=== PATIENT | female | born 1990 | race Caucasian/White ===

== ENCOUNTER 2017-05-27 18:24 | Emergency (ER) | payer OTHER ==
[~2017-05-27] VITALS: Ht 162.6 cm; Wt 72.5 kg
[2017-05-27 19:06] VITALS: Ht 162.6 cm; Wt 72.5 kg
[2017-05-27] MEDS ORDERED: HYD25 PO (19:31)
--- NOTE | 2017-05-27 19:35 | ERD ---
ER Documentation Chief Complaint Date/Time DATE: 05/27/17 TIME: 19:32 Chief Complaint wants medication for HTN, PMD appt in 1 month HPI This 27-year-old female presents to the emergency department today with her mother complaining of high blood pressure. Patient states she has high blood pressure for approximately 5 years but has never taken any medication for it. States that she saw a provider [facility] who was concerned about her because of her elevated blood pressure. States that she does have an appointment with a primary care doctor at [facility] next week however she is unsure if she is going to be able to go to her appointment because she has recently started a new job and starts next week. Denies any headache, dizziness, blurred vision. ROS All systems reviewed and are negative except as per history of present illness. Medications Home Meds Active Scripts Hydrochlorothiazide* (Hydrochlorothiazide*) 25 Mg Tab, 25 MG PO DAILY, #30 TAB Prov:BECKY BELL PA-C 05/27/17 Allergies Allergies: Coded Allergies: No Known Allergy (Unverified , 05/27/17) Physical Exam Vitals Vital Signs Date Time Temp Pulse Resp B/P Pulse Ox O2 Delivery O2 Flow Rate FiO2 05/27/17 19:06 98.4 83 18 160/114 100 Physical Exam Const: No acute distress Head: Atraumatic Eyes: Normal Conjunctiva. PERRLA. EOM intact. ENT: Normal External Ears, Nose and Mouth. Neck: Full range of motion..~ No meningismus. Resp: Clear to auscultation bilaterally Cardio: Regular rate and rhythm, no murmurs Abd: Soft, non tender, non distended. Normal bowel sounds Skin: No petechiae or rashes Back: No midline or flank tenderness Ext: No cyanosis, or edema Neur: Awake and alert. Cranial nerves II through XII intact. No gait ataxia peer Psych: Normal Mood and Affect Procedures/MDM This is a 27-year-old female who presents the emergency department today for concerns of elevated blood pressure. At intake patient's blood pressure was 160 /114. Patient is afebrile and otherwise well-appearing. She denies any headache, dizziness, blurred vision. Cranial nerves II through XII intact and she has no gait ataxia. Do not feel the patient requires a head CT scan at this time. Low suspicion for acute hemorrhage, mass, abscess. Low suspicion for hypertensive emergency. Patient symptoms at this time is consistent with hypertension. I discussed the patient with Dr. Matos and he has recommended that the patient be given a prescription for hydrochlorothiazide. Patient was instructed to keep her appointment next week at [facility]. I did explain to the patient that we would not continue refilling her blood pressure medications. Patient understood. At this time the patient is stable for discharge and outpatient management. Patient should follow up with their PCP in the next 1-2 days. They may return to the emergency department sooner for any persistent or worsening of symptoms. Patient understood and agreed with the plan. Departure Diagnosis: Primary Impression: Hypertension Hypertension type: essential hypertension Qualified Code: I10 - Essential hypertension Condition: Fair Patient Instructions: High Blood Pressure (Hypertension) Referrals: your PCP Additional Instructions: Call your primary care doctor TOMORROW for an appointment during the next 1-2 days.See the doctor sooner or return here if your condition worsens before your appointment time. Keep your appointment with your primary care doctor Take medications as prescribed BECKY BELL PA-C May 27, 2017 19:35
[2017-05-27 19:44] VITALS: BP 158/100; PULSE 85; RESP 18
== END 2017-05-27 19:43 | disposition home or self-care (01) ==
LOC: FTE 18:24
DX: I10 Essential (primary) hypertension (principal)
CPT/HCPCS: 99283

== ENCOUNTER 2017-06-29 16:58 | Emergency (ER) | payer OTHER ==
[~2017-06-29] VITALS: Ht 152.4 cm; Wt 74.5 kg
[~2017-06-29 16:58] MED LIST: HYDR25TA6 PO
[2017-06-29 17:02] VITALS: Ht 152.4 cm; Wt 74.5 kg
--- NOTE | 2017-06-29 18:13 | ERD ---
ER Documentation Chief Complaint Date/Time DATE: 06/29/17 TIME: 18:11 Chief Complaint cough, congestion & fever x2 days HPI 27-year-old female presents to emergency department with flulike symptoms. 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 ROS All systems reviewed and are negative except as per history of present illness. Medications Home Meds Active Scripts Hydrochlorothiazide* (Hydrochlorothiazide*) 25 Mg Tab, 25 MG PO DAILY, #30 TAB Prov:BECKY BELL PA-C 05/27/17 Allergies Allergies: Coded Allergies: No Known Allergy (Unverified , 05/27/17) PMhx/Soc History of Surgery: No Anesthesia Reaction: No Hx Neurological Disorder: No Hx Respiratory Disorders: No Hx Cardiac Disorders: Yes (HTN not on meds) Hx Psychiatric Problems: No Hx Miscellaneous Medical Probl: Yes (Gallbladder stone) Hx Alcohol Use: Yes Hx Substance Use: Yes Hx Tobacco Use: Yes Physical Exam Vitals Vital Signs Date Time Temp Pulse Resp B/P Pulse Ox O2 Delivery O2 Flow Rate FiO2 06/29/17 17:02 98.7 90 22 141/83 100 Vitals stable triage notes reviewed Physical Exam Const: Well-nourished well-appearing well-hydrated no acute distress Head: Atraumatic Eyes: Normal Conjunctiva ENT: Normal External Ears, Nose and Mouth. Neck: Full range of motion..~ No meningismus. Resp: Clear to auscultation bilaterally Cardio: Regular rate and rhythm, no murmurs Abd: Soft, non tender, non distended. Normal bowel sounds Skin: No petechiae or rashes Back: No midline or flank tenderness Ext: No cyanosis, or edema Neur: Awake and alert Psych: Normal Mood and Affect Procedures/MDM This 27-year-old female presents to emergency department today with flulike symptoms, cough congestion runny nose fever and chills. Reports symptoms are worse at night. Coughing is keeping her awake. She denies any history of asthma or recent antibiotic use. Physical exam findings support a viral infection. Treatment plan includes discharge home with Tessalon Perles, and Flonase nasal spray. Fluids, increase rest, okay to use Tylenol or Motrin for fever reduction. If symptoms fail to improve in the next 7-10 days follow-up with primary care physician. Patient is stable with no new complaints during ER course, clinically there is no current evidence to suggest pneumonia, influenza a, influenza B, bronchitis, strep pharyngitis or any other emergent condition appearing to require further evaluation or hospitalization. I feel the patient is stable for discharge at this time. I have discussed results, examination findings, the treatment plan with the patient and family present prior to discharge. Indications for emergent reevaluation, side effects of medication were also discussed. All questions were answered. Patient verbalizes understanding and agrees with plan of care. Departure Diagnosis: Primary Impression: URI (upper respiratory infection) URI type: unspecified URI Qualified Code: J06.9 - Upper respiratory tract infection, unspecified type Condition: Good Patient Instructions: Adult Self-Care for Colds, Preventing Common Respiratory Infections Referrals: [facility]ICS Additional Instructions: Thank you for for coming to [facility] for your care today. Please ask your nurse or provider if you have questions about your care today and do not leave until all your questions have been answered. Please use any medications given as directed and follow-up with your doctor (or the doctor you were referred to) in the next 2-3 days. If you do not have a primary care doctor you may follow up at the [facility] (listed below). You may also use motrin and tylenol as needed for fever and/or pain unless instructed otherwise by your provider or nurse. Indications for more urgent follow-up have been discussed, but you may return to the Emergency Department at ANY time for any worrisome or worsening symptoms. If you have abdominal pain, please know that no test or exam you received is perfect and you should follow up within 8 hours for continued pain. If you had any imaging studies today, such as an X-Ray or CT Scan, these studies will be reviewed later by a radiologist. You will be called if there are important findings that were not identified today, so make sure the contact information you provided at registration is correct. If you received any narcotic pain control medicine today, such as Vicodin, Morphine or Dilaudid, your coordination and judgment may be affected for a number of hours. Please do not drive or operate heavy machinery, and you may want someone to assist you at home. If you were given a prescription for narcotic medication, be aware that it is very addictive- use sparingly and only if necessary. BETO KASPER Jun 29, 2017 18:13
[2017-06-29] MEDS ORDERED: BENZ100C70 PO (18:47)
[2017-06-29] MEDS ORDERED: FLUT9.9S NASAL (18:47)
== END 2017-06-29 19:40 | disposition home or self-care (01) ==
LOC: FTE 16:58
DX: J06.9 Acute upper respiratory infection, unspecified (principal); I10 Essential (primary) hypertension; Z87.891 Personal history of nicotine dependence
CPT/HCPCS: 99283

== ENCOUNTER 2017-11-15 03:21 | Emergency (ER) | END 2017-11-15 05:43 | disposition home or self-care (01) ==

== ENCOUNTER 2018-04-05 21:07 | Emergency (ER) | END 2018-04-05 23:23 | disposition home or self-care (01) ==

== ENCOUNTER 2018-09-07 22:32 | Emergency (ER) | END 2018-09-08 01:14 | disposition home or self-care (01) ==

== ENCOUNTER 2019-01-28 06:44 | Emergency (ER) | payer OTHER ==
[~2019-01-28] VITALS: Ht 160 cm; Wt 76.7 kg
[~2019-01-28 06:44] MED LIST changes: +AMOX1TAB10 PO; +AZIT250T PO; +BENZ-6 PO; +HYDR-3980 PO; +IBUP-1542 PO; +ONDA4TAB14 PO; +PROM6.2515 PO
[2019-01-28 06:48] VITALS: BP 162/98; PULSE 61; RESP 18; Ht 160 cm; Wt 76.7 kg
[2019-01-28] MEDS ORDERED: SOD CHLORIDE 0.9% 1,000 ML IV STA (07:01)
[2019-01-28] MEDS ORDERED: ONDANSETRON 4 MG INJ IV STA (07:01)
[2019-01-28] MEDS ORDERED: KETOROLAC 30 MG INJ IV STA (07:01)
[2019-01-28] MEDS ORDERED: HYDROCODONE/APAP (5/325) TAB PO ONE (08:30)
[2019-01-28] MEDS ORDERED: FAMO-96 PO (08:30)
[2019-01-28] MEDS ORDERED: HYDR-4011 PO (08:30)
[2019-01-28] MEDS ORDERED: HYDR25TA6 PO (08:52)
--- NOTE | 2019-01-28 13:09 | ERD ---
ER Documentation Chief Complaint Chief Complaint RIGHT UQ ABDF. PAIN WITH NAUSEA. HX OF GALLSTONE. HPI 28-year-old female presenting with right upper quadrant pain with nausea and vomiting. Patient has history of gallstones however states the pain has not lasted this long in the past. She took Advil 6 hours prior to my evaluation. Medical history is hypertension NKDA. Surgical history denies. Social history denies ROS All systems reviewed and are negative except as per history of present illness. Medications Home Meds Active Scripts Hydrochlorothiazide* (Hydrochlorothiazide*) 25 Mg Tab, 25 MG PO DAILY, #30 TAB Prov:JANICE ALEXIS PA-C 01/28/19 Famotidine* (Pepcid*) 20 Mg Tablet, 20 MG PO BID for 4 Days, #30 TAB Prov:JANICE ALEXIS PA-C 01/28/19 Hydrocodone/Acetaminophen ([place] 5-325 Tablet) 1 Each Tablet, 1 TAB PO Q6H PRN for PAIN, #7 TAB Prov:JANICE ALEXIS PA-C 01/28/19 Benzonatate* (Tessalon Perle*) 100 Mg Capsule, 100 MG PO Q8H PRN for COUGH, #30 CAP Prov:JANICE ALEXIS PA-C 09/08/18 Promethazine Hcl* (Promethazine Hcl* Syrup) 6.25 Mg/5 Ml Syrup, 6.25 MG PO Q6H PRN for COUGH, #100 ML Prov:JANICE ALEXIS PA-C 09/08/18 Azithromycin* (Zithromax*) 250 Mg Tablet, 250 MG PO .BECCA DIRECTED, #6 TAB TAKE 500 MG (2 TABS) THE FIRST DAY THEN 250 MG (1 TAB) DAYS 2-5 Prov:JANICE ALEXIS PA-C 09/08/18 Ibuprofen* (Motrin*) 600 Mg Tab, 600 MG PO Q6H PRN for PAIN AND OR ELEVATED TEMP, #30 TAB Prov:GILBERTO MOHAN NP 04/05/18 Amoxicillin/Potassium Clav (Amox-Clav 875-125 mg Tablet) 875-125 mg Tab, 1 TAB PO BID for 10 Days, #20 TAB Prov:GILBERTO MOHAN NP 04/05/18 Ondansetron (Ondansetron Odt) 4 Mg Tab.rapdis, 4 MG PO Q6H PRN for NAUSEA AND/OR VOMITING, #10 TAB Prov:JENNIFER TRAVIS MD 11/15/17 Hydrocodone/Acetaminophen ([place] 10-325 Tablet) 1 Each Tablet, 1 TAB PO Q6H PRN for PAIN, #7 TAB Prov:JENNIFER TRAVIS MD 11/15/17 Hydrochlorothiazide* (Hydrochlorothiazide*) 25 Mg Tab, 25 MG PO DAILY, #30 TAB Prov:BECKY BELL PA-C 05/27/17 Allergies Allergies: Coded Allergies: No Known Allergy (Unverified , 04/05/18) PMhx/Soc Medical and Surgical Hx: pt denies Surgical Hx History of Surgery: No Anesthesia Reaction: No Hx Neurological Disorder: No Hx Respiratory Disorders: No Hx Cardiac Disorders: Yes (HTN ) Hx Psychiatric Problems: No Hx Miscellaneous Medical Probl: Yes (Gallbladder stone) Hx Alcohol Use: No Hx Substance Use: No Hx Tobacco Use: No Smoking Status: Never smoker FmHx Family History: No diabetes, No coronary disease, No other Physical Exam Vitals Vital Signs Date Temp Pulse Resp B/P (MAP) Pulse Ox O2 O2 Flow FiO2 Time Delivery Rate 01/28/19 97.0 61 18 162/98 97 06:48 (119) Physical Exam GENERAL: The patient is well-appearing, well-nourished, in no acute distress HEENT: Atraumatic. Conjunctivae are pink. Pupils equal, round, and reactive to light. There is no scleral icterus. Tympanic membranes clear bilaterally. Oropharynx clear. No nystagmus or photophobia. NECK: C-spine is soft and supple. There is no meningismus. There is no cervical lymphadenopathy. CHEST: Clear to auscultation bilaterally. There are no rales, wheezes or rhonchi. HEART: Regular rate and rhythm. No murmurs, clicks, rubs or gallops. No S3 or S4. ABDOMEN: Normal active bowel sounds. No distention. No organomegaly. Tender to palpation in the epigastric region BACK: No midline or flank tenderness. Result Diagram: 01/28/19 0718 01/28/19 0718 Results 24 hrs Laboratory Tests Test 01/28/19 07:07 01/28/19 07:10 01/28/19 07:18 POC Beta HCG, Qualitative NEGATIVE Urine Color YELLOW Urine Clarity SLIGHTLY CLOUDY Urine pH 5.0 Urine Specific [place] 1.026 Urine Ketones NEGATIVE mg/dL Urine Nitrite NEGATIVE mg/dL Urine Bilirubin NEGATIVE mg/dL Urine Urobilinogen NEGATIVE mg/dL Urine Leukocyte Esterase NEGATIVE Jhonny/ul Urine Microscopic RBC 0 /HPF Urine Microscopic WBC 1 /HPF Urine Squamous Epithelial Cells FEW /HPF Urine Hemoglobin 1+ mg/dL Urine Glucose NEGATIVE mg/dL Urine Total Protein NEGATIVE mg/dl White Blood Count 9.1 10^3/ul Red Blood Count 4.79 10^6/ul Hemoglobin 13.4 g/dl Hematocrit 41.6 % Mean Corpuscular Volume 86.8 fl Mean Corpuscular Hemoglobin 28.0 pg Mean Corpuscular 32.2 g/dl Hemoglobin Concent Red Cell Distribution Width 13.6 % Platelet Count 349 10^3/UL Mean Platelet Volume 9.4 fl Immature Granulocytes % 0.600 % Neutrophils % 62.3 % Lymphocytes % 27.6 % Monocytes % 7.6 % Eosinophils % 1.2 % Basophils % 0.7 % Nucleated Red Blood Cells % 0.0 /100WBC Immature Granulocytes # 0.050 10^3/ul Neutrophils # 5.7 10^3/ul Lymphocytes # 2.5 10^3/ul Monocytes # 0.7 10^3/ul Eosinophils # 0.1 10^3/ul Basophils # 0.1 10^3/ul Nucleated Red Blood Cells # 0.0 10^3/ul Sodium Level 141 mmol/L Potassium Level 4.3 mmol/L Chloride Level 103 mmol/L Carbon Dioxide Level 23 mmol/L Anion Gap 15 Blood Urea Nitrogen 10 mg/dl Creatinine 0.49 mg/dl Est Glomerular Filtrat > 60 mL/min Rate mL/min Glucose Level 98 mg/dl Calcium Level 9.7 mg/dl Total Bilirubin 0.2 mg/dl Direct Bilirubin 0.00 mg/dl Indirect Bilirubin 0.2 mg/dl Aspartate Amino 27 IU/L Transf (AST/SGOT) Alanine 17 IU/L Aminotransferase (ALT/SGPT) Alkaline Phosphatase 108 IU/L Total Protein 8.4 g/dl Albumin 4.6 g/dl Globulin 3.80 g/dl Albumin/Globulin Ratio 1.21 Lipase 74 U/L Current Medications Medications Dose Sig/Negrito Start Time Status Last (Trade) Ordered Route PRN Stop Time Admin Dose Reason Admin Sodium 1,000 ml @ Q1H STAT 01/28/19 DC 01/28/19 Chloride 1,000 mls/hr IV 07:01 07:39 01/28/19 08:00 Ondansetron 4 mg ONCE STAT 01/28/19 DC 01/28/19 HCl (Zofran IV 07:01 07:39 Inj) 01/28/19 07:02 Ketorolac 30 mg ONCE STAT 01/28/19 DC 01/28/19 Tromethamine IV 07:01 07:39 (Toradol) 01/28/19 07:02 1 tab ONCE ONCE 01/28/19 DC 01/28/19 Acetaminophen PO 08:30 08:43 / 01/28/19 08:31 Hydrocodone Bitart ([place] (5/325)) Procedures/MDM DIAGNOSTIC IMAGING REPORT Patient: JOCELYN MOODY : 1990 Age: 28 Sex: F MR #: [id number] DOS: 01/28/19 0701 Ordering MD: ZAINAB ALEXIS PA-C Location: [facility] Room/Bed: PROCEDURE: US Abdomen. CLINICAL INDICATION: abdominal pain TECHNIQUE: Multiple real-time images were acquired of the patient's right upper quadrant abdomen and retroperitoneum utilizing a high resolution transducer. COMPARISON: 11/15/2017 FINDINGS: The liver demonstrates increased echogenicity. The liver is normal in size and no focal solid lesions are seen. The liver measures 15.4 cm in length. The por dejuan vein is patent with normal direction of flow. No intrahepatic biliary dilatation is seen. There is a single 6 cm calcified stone within the gallbladder. There is no pericholecystic fluid or gallbladder wall thickening. The common bile duct measures 4 mm in maximal dimension. The pancreas is not well seen due to overlying bowel gas. No free fluid is identified. The right kidney is normal in size, and demonstrate normal echogenicity and cortical thickness. The right kidney measures 11.1 cm in long dimension. There is no evidence of hydronephrosis. There are no kidney stones. RPTAT: AA IMPRESSION: Single calcified stone within the gallbladder. Mild fatty infiltration of the liver. MDM: 28-year-old female presents with epigastric pain. Patient has findings consistent with cholelithiasis however did not have low cystitis, cholangitis or pancreatitis. I have low suspicion for cardiac or pulmonary emergency. Patient is discharged with strict ER precautions and told to follow-up with primary care within 1-2 days for close evaluation. All questions answered at discharge Departure Diagnosis: Primary Impression: Gallstones Condition: Stable Patient Instructions: Gallstones Referrals: COMMUNITY CLINICS YOU HAVE RECEIVED A MEDICAL SCREENING EXAM AND THE RESULTS INDICATE THAT YOU DO NOT HAVE A CONDITION THAT REQUIRES URGENT TREATMENT IN THE EMERGENCY DEPARTMENT. FURTHER EVALUATION AND TREATMENT OF YOUR CONDITION CAN WAIT UNTIL YOU ARE SEEN IN YOUR DOCTORS OFFICE WITHIN THE NEXT 1-2 DAYS. IT IS YOUR RESPONSIBILITY TO MAKE AN APPOINTMENT FOR FOLOW-UP CARE. IF YOU HAVE A PRIMARY DOCTOR --you should call your primary doctor and schedule an appointment IF YOU DO NOT HAVE A PRIMARY DOCTOR YOU CAN CALL OUR PHYSICIAN REFERRAL HOTLINE AT IF YOU CAN NOT AFFORD TO SEE A PHYSICIAN YOU CAN CHOSE FROM THE FOLLOWING [facility] CLINICS [facility] [address] [facility] [address] [facility] [address] [facility] [address] [facility] [address] [facility]. [facility]. [address] Additional Instructions: FOLLOW UP WITH YOUR PRIMARY CARE PHYSICIAN TOMORROW.Return to this facility if you are not improving as expected. JANICE ALEXIS PA-C Jan 28, 2019 13:09
== END 2019-01-28 08:55 | disposition home or self-care (01) ==
LOC: FTE 06:44
DX: N20.0 Calculus of kidney (principal); I10 Essential (primary) hypertension
CPT/HCPCS: 36415; 76705; 80053; 81001; 81025; 83690; 85025; 96361; 96374; 96375; J1885; J2405; J7030; Z7502; Z7610

== ENCOUNTER 2019-02-10 12:47 | Emergency (ER) | payer SELFPAY ==
[~2019-02-10] VITALS: Ht 152.4 cm; Wt 76.0 kg
[~2019-02-10 12:47] MED LIST changes: +FAMO-96 PO; +HYDR-4011 PO
[2019-02-10 13:11] VITALS: PULSE 86; RESP 18; Ht 152.4 cm; Wt 76.0 kg
== END 2019-02-10 15:30 | disposition left against medical advice (07) ==
LOC: E/R 12:47
DX: Z53.21 Procedure and treatment not carried out due to patient leaving prior to being seen by health care provider (principal)